=== PATIENT | female | born 1955 | race Caucasian/White ===

== ENCOUNTER → 2016-12-18 | Outpatient (CLI) | payer BC | LOC: MC.RAD 14:02 | DX: Z12.31 Encounter for screening mammogram for malignant neoplasm of breast (principal); R92.1 Mammographic calcification found on diagnostic imaging of breast ==

== ENCOUNTER → 2018-05-07 | Outpatient (CLI) | payer BC | LOC: MC.RAD 13:56 | DX: Z12.31 Encounter for screening mammogram for malignant neoplasm of breast (principal) ==

== ENCOUNTER → 2019-09-19 | Outpatient (CLI) | payer BC | LOC: COL.RAD 08:07 | DX: N28.1 Cyst of kidney, acquired (principal); R74.8 Abnormal levels of other serum enzymes ==

== ENCOUNTER → 2020-06-06 | Outpatient (CLI) | payer BC | LOC: MC.RAD 08:29 | DX: Z12.31 Encounter for screening mammogram for malignant neoplasm of breast (principal) ==

== ENCOUNTER → 2021-07-01 | Outpatient (CLI) | payer BC | LOC: MC.RAD 09:50 | DX: Z12.31 Encounter for screening mammogram for malignant neoplasm of breast (principal) ==